=== PATIENT | male | born 1955 | race Caucasian/White ===

== ENCOUNTER 2018-03-14 07:17 | Day surgery (SDC) | payer BC ==
[2018-03-14] MEDS ORDERED: NA CHLORIDE 0.9% 500 ML ONE (07:43)
[2018-03-14] MEDS ORDERED: LIDOCAINE 1% MPF 5 ML VIAL ONE (08:20)
[2018-03-14] MEDS ORDERED: PROPOFOL 200 MG/20 ML VIAL IV ONE ×2 (08:20→08:21)
--- NOTE | 2018-03-14 09:14 | ENDO RPT ---
[address], [address] COLONOSCOPY PROCEDURE REPORT EXAM DATE: 03/14/2018 PATIENT NAME: Kaveh Hernandez MR #: [id number] BIRTHDATE: 1955 ATTENDING: John Jacobson DR STATUS: outpatient DIRECTOR RETIREMENT: Miranda Unger, Peggy Guzmán RN, and Mounika Sharma RN INDICATIONS: The patient is a 62 yr old Male here for a colonoscopy due to colon cancer screening PROCEDURE PERFORMED: Colonoscopy MEDICATIONS: Per Anesthesia. ESTIMATED BLOOD LOSS: None CONSENT: The patient understands the risks and benefits of the procedure and understands that these risks include, but are not limited to: sedation, allergic reaction, infection, perforation and/or bleeding. Alternative means of evaluation and treatment include, among others: physical exam, x-rays, and/or surgical intervention. The patient elects to proceed with this endoscopic procedure. DESCRIPTION OF PROCEDURE: During intra-op preparation period all mechanical medical equipment was checked for proper function. Hand hygiene and appropriate measures for infection prevention was taken. Procedure, possible complications, alternatives including, but not limited to possibility of bleeding, perforation, tear, infection, sepsis, need for surgery, need for blood transfusion, were explained to the patient. After the risks, benefits and alternatives of the procedure were thoroughly explained, Informed consent was verified, confirmed and timeout was successfully executed by the treatment team. The patient was placed in the left lateral position. A digital rectal exam was performed and revealed internal hemorrhoids. After appropriate level of anesthesia, the scope was passed. The EC-3890Li ([id number]) endoscope was introduced through the anus and advanced to the cecum, which was identified by both the appendix and ileocecal valve. The quality of the prep was poor. The instrument was then slowly withdrawn as the colon was fully examined. Scope withdrawal time was 7 minutes. COLON FINDINGS: A normal appearing cecum, ileocecal valve, and appendiceal orifice were identified. the ascending, transverse, descending, sigmoid colon, and rectum appeared unremarkable. Small internal hemorrhoids were found. Retroflexed views revealed no abnormalities. The scope was then completely withdrawn from the patient and the procedure terminated. ADVERSE EVENTS: There were no complications. IMPRESSIONS: 1. A normal appearing cecum, ileocecal valve, and appendiceal orifice were identified. the ascending, transverse, descending, sigmoid colon, and rectum appeared unremarkable 2. Small internal hemorrhoids RECOMMENDATIONS: 1. fiber rich diet 2. follow-up: office 3 year(s) RECALL: Return in 3 year(s) for Colonoscopy. Poor Prep, Repeat colonoscopy with 2 day prep John Jacobson DR eSigned: John Jacobson DR 03/14/2018 9:13 AM cc: CPT CODES: ICD9 CODES: PATIENT NAME: Kaveh Hernandez MR#: [id number]
[2018-03-14 09:30] VITALS: TEMP 97.7
[2018-03-14 10:00] VITALS: BP 123/52; O2SAT 98
== END 2018-03-14 09:56 | disposition home or self-care (01) ==
LOC: ENDO 07:17
PROVIDERS: ATTEND Surgery
PROC: 0DJD8ZZ Inspection of Lower Intestinal Tract, Via Natural or Artificial Opening Endoscopic (ICD-10-PCS; principal; 2018-03-14 08:27)
DX: Z12.11 Encounter for screening for malignant neoplasm of colon (principal); K64.8 Other hemorrhoids; I12.0 Hypertensive chronic kidney disease with stage 5 chronic kidney disease or end stage renal disease; N18.6 End stage renal disease; Z99.2 Dependence on renal dialysis; Z80.0 Family history of malignant neoplasm of digestive organs; Z80.8 Family history of malignant neoplasm of other organs or systems; Z82.0 Family history of epilepsy and other diseases of the nervous system

== ENCOUNTER 2021-11-09 10:24 | Day surgery (SDC) | payer OTHER ==
[2021-11-09] MEDS ORDERED: Ringers Lactate 1,000 ML IV ONE (10:43)
[2021-11-09 11:10] VITALS: O2SAT 100
[2021-11-09] MEDS ORDERED: propofoL 200 MG/20 ML VIAL IV ONE ×3 (11:37→11:38)
[2021-11-09] MEDS ORDERED: LIDOCAINE 1% MPF 2 ML AMPULE ONE (11:38)
[2021-11-09] MEDS ORDERED: GLYCOPYRROLATE 0.2 MG/ML SYR ONE (12:05)
--- NOTE | 2021-11-09 12:21 | ENDO RPT ---
[address], [address] COLONOSCOPY PROCEDURE REPORT EXAM DATE: 11/09/2021 PATIENT NAME: Kaveh Hernandez MR #: [id number] BIRTHDATE: 1955 ATTENDING: John Jacobson DR STATUS: outpatient [employer] TECHNICIAN: Breanne Negrete RN and Miriam Unger INDICATIONS: The patient is a 66 yr old Male here for a colonoscopy due to colon cancer screening PROCEDURE PERFORMED: Colonoscopy and Screening Colonoscopy MEDICATIONS: Per Anesthesia. ESTIMATED BLOOD LOSS: None CONSENT: The patient understands the risks and benefits of the procedure and understands that these risks include, but are not limited to: sedation, allergic reaction, infection, perforation and/or bleeding. Alternative means of evaluation and treatment include, among others: physical exam, x-rays, and/or surgical intervention. The patient elects to proceed with this endoscopic procedure. DESCRIPTION OF PROCEDURE: During intra-op preparation period all mechanical medical equipment was checked for proper function. Hand hygiene and appropriate measures for infection prevention was taken. Procedure, possible complications, alternatives including, but not limited to possibility of bleeding, perforation, tear, infection, sepsis, need for surgery, need for blood transfusion, were explained to the patient. After the risks, benefits and alternatives of the procedure were thoroughly explained, Informed consent was verified, confirmed and timeout was successfully executed by the treatment team. The patient was placed in the left lateral position. A digital rectal exam was performed and revealed internal hemorrhoids. After appropriate level of anesthesia, the scope was passed. The EC-3890Li ([id number]) endoscope was introduced through the anus and advanced to the cecum, which was identified by both the appendix and ileocecal valve. The quality of the prep was poor. The instrument was then slowly withdrawn as the colon was fully examined. Scope withdrawal time was 15 minutes. COLON FINDINGS: The colon mucosa was otherwise normal. Small internal hemorrhoids were found. Retroflexed views revealed no abnormalities. The scope was then completely withdrawn from the patient and the procedure terminated. ADVERSE EVENTS: There were no complications. IMPRESSIONS: 1. The colon mucosa was otherwise normal 2. Small internal hemorrhoids RECOMMENDATIONS: 1. avoid NSAIDS for 2 weeks 2. fiber rich diet 3. yearly hemoquant 4. hemorrhoidal hygiene 5. increase dietary water RECALL: Return in 3 year(s) for Colonoscopy. Poor Prep John Jacobson DR eSigned: John Jacobson DR 11/09/2021 12:21 PM cc: CPT CODES: ICD9 CODES: PATIENT NAME: Kaveh HernandezVernon MR#: [id number]
[2021-11-09 14:04] VITALS: BP 183/84; TEMP 97.2
== END 2021-11-09 13:55 | disposition home or self-care (01) ==
LOC: OR 10:24
PROVIDERS: ATTEND Surgery
PROC: 0DJD8ZZ Inspection of Lower Intestinal Tract, Via Natural or Artificial Opening Endoscopic (ICD-10-PCS; principal; 2021-11-09 12:00)
DX: Z12.11 Encounter for screening for malignant neoplasm of colon (principal); K64.8 Other hemorrhoids; Z20.822 Contact with and (suspected) exposure to COVID-19
CPT/HCPCS: U0002; J2704; J7120; G0121

== ENCOUNTER 2024-10-01 10:23 | Day surgery (SDC) | payer OTHER ==
[2024-09-30 15:55] LABS: Absolute Eosinophils 0.1 K/uL (0-0.5); Absolute Lymphocytes (CBC) 1.2 K/uL (0.7-4.9); Absolute Monocytes 0.6 K/uL (0.1-1.3); Absolute Neutrophil 2.4 K/uL (1.8-8.0); Basophils % 0.7 % (0-1.3); Eosinophils % 2.8 % (0-4.4); Hematocrit 31.4 % (39.6-49.0); Hemoglobin 10.3 g/dL (13.6-17.9); Lymphocytes % 27.5 % (15.3-44.8); MCH 32.8 pg (27.0-35.0); MCHC 32.8 g/dL (32.0-36.0); MCV 99.9 fL (80-100); MPV 9.1 fL (7.6-11.3); Monocytes % 13.7 % (3.3-12.3); Neutrophils % 55.3 % (41.7-73.7); Platelets 108 thou/uL (152-406); RBC Red Blood Cell Count 3.15 M/uL (4.33-5.43); Red Cell Distribution Width 14.6 % (12.1-15.2)
[2024-09-30 16:15] LABS: Anion Gap 6.9 mEq/L (5.0-15.0); Potassium 3.9 mEq/L (3.5-5.1)
[2024-10-01] MEDS: NA CHLORIDE 0.9% 500 ML ONE (11:09)
[2024-10-01] MEDS ORDERED: LIDOCAINE 1% MPF 30 ML VIAL ONE (11:21)
[2024-10-01] MEDS ORDERED: propofoL 200 MG/20 ML VIAL IV ONE (11:21)
[2024-10-01 14:05] VITALS: BP 155/63; TEMP 97.6; O2SAT 100
--- NOTE | 2024-10-05 12:27 | EKG ---
Test Date: 2024-09-30 Test Time: 15:28:36 Die Presser: LO MEASUREMENT RESULTS: Intervals: Rate: 61 ME: 134 QRSD: 92 QT: 440 QTc: 442 Moon: P: 4 ME: 134 QRS: 78 T: 80 INTERPRETIVE STATEMENTS: Normal sinus rhythm with sinus arrhythmia Normal ECG Compared to ECG 07/09/2016 23:25:01 Short ME interval no longer present Myocardial infarct finding no longer present ST (T wave) deviation no longer present Electronically Signed On 10-05-24 12:18:28 DRIVER ENGINEER by Mariusz Jones
== END 2024-10-01 13:10 | disposition home or self-care (01) ==
LOC: OR 10:23
PROVIDERS: ATTEND Surgery
PROC: 0DBN8ZX Excision of Sigmoid Colon, Via Natural or Artificial Opening Endoscopic, Diagnostic (ICD-10-PCS; 2024-10-01)
PROC: 0DBP8ZX Excision of Rectum, Via Natural or Artificial Opening Endoscopic, Diagnostic (ICD-10-PCS; principal; 2024-10-01 12:00)
DX: Z12.11 Encounter for screening for malignant neoplasm of colon (principal); K63.5 Polyp of colon; N42.9 Disorder of prostate, unspecified; K57.30 Diverticulosis of large intestine without perforation or abscess without bleeding; K64.8 Other hemorrhoids
CPT/HCPCS: 93005; 85025; 80048; 36415; 88304; 45380; J2704; J2003; J7040

== ENCOUNTER 2024-12-10 10:14 | Day surgery (SDC) | payer OTHER ==
[2024-12-09 10:29] LABS: Absolute Eosinophils 0.7 K/uL (0-0.5); Absolute Lymphocytes (CBC) 1.4 K/uL (0.7-4.9); Absolute Monocytes 0.7 K/uL (0.1-1.3); Absolute Neutrophil 2.9 K/uL (1.8-8.0); Basophils % 0.7 % (0-1.3); Eosinophils % 12.7 % (0-4.4); Hematocrit 36.9 % (39.6-49.0); Hemoglobin 12.2 g/dL (13.6-17.9); Lymphocytes % 24.3 % (15.3-44.8); MCH 31.2 pg (27.0-35.0); MCV 94.6 fL (80-100); MPV 9.1 fL (7.6-11.3); Monocytes % 12.2 % (3.3-12.3); Neutrophils % 50.1 % (41.7-73.7); Nucleated Red Blood Cells % 0.1 % (0-0); Platelets 120 thou/uL (152-406); Red Cell Distribution Width 14.4 % (12.1-15.2)
[2024-12-09 10:46] LABS: Anion Gap 12.7 mEq/L (5.0-15.0); Potassium 4.7 mEq/L (3.5-5.1)
[2024-12-10] MEDS ORDERED: propofoL 200 MG/20 ML VIAL IV ONE (10:51)
[2024-12-10] MEDS ORDERED: LIDOCAINE 2% MPF 5 ML VIAL ONE (10:51)
[2024-12-10] MEDS ORDERED: FENTANYL CITR 100 MCG/2 ML ONE (10:51)
[2024-12-10] MEDS ORDERED: ONDANSETRON 4 MG/2 ML VIAL ONE (10:51)
[2024-12-10] MEDS: NA CHLORIDE 0.9% 500 ML ONE (11:00)
[2024-12-10] MEDS ORDERED: EPHEDRINE SULF 50 MG/ML VIAL ONE (11:28)
[2024-12-10] MEDS ORDERED: dexAMETHasone 4 MG/ML VIAL ONE (11:28)
[2024-12-10] MEDS: LIDOCAINE HCL/EPINEPHRINE 20 ML MDV ONE (11:54)
--- NOTE | 2024-12-10 12:05 | P.OP ---
Preoperative diagnosis: Removal of Tunneled RIGHT IJ Hemodialysis Catheter Postoperative diagnosis: Removal of Tunneled RIGHT IJ Hemodialysis Catheter Primary procedure: Removal of Tunneled RIGHT IJ Hemodialysis Catheter Anesthesia: GETA + Local Estimated blood loss: <2cc Specimen: Cath for ID only Findings: Cath complete Complications: None Transferred to: Recovery Room Condition: Good
[2024-12-10 12:23] VITALS: O2SAT 100
--- NOTE | 2024-12-10 12:41 | OP ---
Date of Procedure: 12/10/2024 Surgeon: John Jacobson MD, Preoperative Diagnosis: Removal of tunneled right internal jugular hemodialysis catheter. Postoperative Diagnosis: Removal of tunneled right internal jugular hemodialysis catheter. Procedure Performed: Removal of right internal jugular tunneled hemodialysis catheter. Anesthesia: General endotracheal plus local with 1% lidocaine. Estimated Blood Loss: 2 cc. Specimen: Catheter for ID only. Findings: Cath was complete without fracture. Complications: None. Disposition: Patient transferred to recovery room in good condition. Procedure In Detail: After informed consent was obtained, patient was brought to the operating room, prepped and draped in the usual sterile fashion. After adequate anesthesia was achieved, I anesthet ized an area in the right infraclavicular position where catheter was noted. I ultimately dissected circumferentially around using a combination of predominantly blunt dissection around the hemodialysi s catheter cuff at the infraclavicular position. Ultimately, I brought the catheter cuff into the fi eld, ligated from the surrounding structures using a combination of blunt dissection and electrocaute ry. At this point, the patient was placed in steep Trendelenburg position, ultimately catheter was r emoved, while pressure being held at the insertion site and the exit site. The patient was then sat up in the head up position. The area was copiously irrigated and closed with interrupted 3-0 nylon s utures and a sterile dressing placed over top. The patient tolerated procedure without incident or c omplication, and transferred to PACU in good condition. All counts were correct at the end of the ca se. TK/MODL Voice ID: [id number] Report ID: [id number]
[2024-12-10 13:33] VITALS: BP 152/77
[2024-12-10 13:34] VITALS: TEMP 97
== END 2024-12-10 13:30 | disposition home or self-care (01) ==
LOC: OR 10:14
PROVIDERS: ATTEND Surgery
PROC: 05PY03Z Removal of Infusion Device from Upper Vein, Open Approach (ICD-10-PCS; principal; 2024-12-10 12:00)
DX: N18.6 End stage renal disease (principal); Z49.01 Encounter for fitting and adjustment of extracorporeal dialysis catheter
CPT/HCPCS: 85025; 80048; 36415; 88300; 36589; J2704; J1100; J2003; J3010; J2405; J7040